=== PATIENT | male | born 1945 | race Caucasian/White ===

== ENCOUNTER 2017-05-14 08:15 | Emergency (ER) | payer MEDICARE, BC ==
[2017-05-14 09:22] LABS: BASOPHILS 0.2 % (0-2); EOSINOPHILS 1.6 % (0-7); HEMATOCRIT 42.2 % (42.0-54.0); HEMOGLOBIN 13.9 g/dL (13.5-17.5); IMMATURE GRANULOCYTES 0.2 % (0-5); LYMPHOCYTES 21.2 % (15-50); MCH 31.5 pg (26.0-34.0); MCHC 32.9 g/dL (31.0-37.0); MCV 95.7 fL (80.0-100.0); MEAN PLATELET VOLUME 9.2 fL (7.4-10.4); MONOCYTES 11.3 % (2-11); NEUTROPHILS 65.5 % (40-80); PLATELET COUNT 161 10x3/uL (130-400); RBC 4.41 10x6/uL (4.20-6.10); RDW 14.7 % (11.5-14.5); WBC 5.5 10x3/uL (4.8-10.8)
[2017-05-14 09:40] LABS: ALBUMIN 3.6 g/dL (3.4-5.0); ALKALINE PHOSPHATASE 87 U/L (46-116); ALT (SGPT) 34 U/L (10-68); BILIRUBIN - TOTAL 0.47 mg/dL (0.2-1.3); CALC OSMOLALITY 281 mosm/kg (275-300); CALCIUM 8.8 mg/dL (8.5-10.1); CARBON DIOXIDE 23.4 mmol/L (21.0-32.0); CHLORIDE - SERUM 109 mmol/L (98-107); GLUCOSE 97 mg/dL (74-106); POTASSIUM - SERUM 3.7 mmol/L (3.5-5.1); PROTEIN - SERUM 6.9 g/dL (6.4-8.2); SODIUM 141 mmol/L (136-145); UREA NITROGEN 14 mg/dL (7-18); eGFR NON AFRICAN AMERICAN 78 mL/min (90-120)
[2017-06-10 15:45] VITALS: BMI 28.2
== END 2017-05-14 10:40 | disposition home or self-care (01) ==
LOC: D.ER 08:15
PROVIDERS: Family Medicine
DX: L03.116 Cellulitis of left lower limb (principal); I80.3 Phlebitis and thrombophlebitis of lower extremities, unspecified

== ENCOUNTER 2017-05-31 10:27 | Emergency (ER) | payer MEDICARE, BC ==
[2017-05-31 11:16] LABS: BASOPHILS 0.4 % (0-2); EOSINOPHILS 1.4 % (0-7); HEMATOCRIT 41.2 % (42.0-54.0); HEMOGLOBIN 13.4 g/dL (13.5-17.5); IMMATURE GRANULOCYTES 0.4 % (0-5); MCH 31.1 pg (26.0-34.0); MCHC 32.5 g/dL (31.0-37.0); MCV 95.6 fL (80.0-100.0); MEAN PLATELET VOLUME 9.8 fL (7.4-10.4); MONOCYTES 11.5 % (2-11); NEUTROPHILS 66.3 % (40-80); PLATELET COUNT 173 10x3/uL (130-400); RBC 4.31 10x6/uL (4.20-6.10); RDW 13.9 % (11.5-14.5); WBC 5.6 10x3/uL (4.8-10.8)
[2017-05-31 11:28] LABS: ALBUMIN 3.7 g/dL (3.4-5.0); ALKALINE PHOSPHATASE 82 U/L (46-116); ALT (SGPT) 21 U/L (10-68); BILIRUBIN - TOTAL 0.53 mg/dL (0.2-1.3); CALC OSMOLALITY 281 mosm/kg (275-300); CALCIUM 8.6 mg/dL (8.5-10.1); CARBON DIOXIDE 23.5 mmol/L (21.0-32.0); CHLORIDE - SERUM 108 mmol/L (98-107); GLUCOSE 91 mg/dL (74-106); POTASSIUM - SERUM 4.2 mmol/L (3.5-5.1); PROTEIN - SERUM 6.7 g/dL (6.4-8.2); SODIUM 139 mmol/L (136-145); UREA NITROGEN 23 mg/dL (7-18); eGFR NON AFRICAN AMERICAN 78 mL/min (90-120)
[2017-05-31 11:35] LABS: PRO BNP 618 pg/mL (0-125)
[2017-06-10 15:45] VITALS: BMI 28.2
== END 2017-05-31 14:44 | disposition home or self-care (01) ==
LOC: D.ER 10:27
PROVIDERS: Emergency Medicine
DX: L03.116 Cellulitis of left lower limb (principal); I87.8 Other specified disorders of veins

== ENCOUNTER 2017-06-07 11:18 | Emergency (ER) | payer MEDICARE, BC ==
[2017-06-10 15:45] VITALS: BMI 28.2
== END 2017-06-07 12:34 | disposition home or self-care (01) ==
LOC: D.ER 11:18
DX: L03.116 Cellulitis of left lower limb (principal); M79.662 Pain in left lower leg

== ENCOUNTER 2017-06-10 10:38 | Inpatient (IN) | payer MEDICARE, BC ==
[~2017-06-10] VITALS: Ht 170.2 cm; Wt 81.8 kg
[2017-06-10 12:38] LABS: BASOPHILS 0.5 % (0-2); EOSINOPHILS 2.4 % (0-7); HEMATOCRIT 40.9 % (42.0-54.0); HEMOGLOBIN 13.4 g/dL (13.5-17.5); IMMATURE GRANULOCYTES 0.2 % (0-5); LYMPHOCYTES 21.9 % (15-50); MCH 31.2 pg (26.0-34.0); MCHC 32.8 g/dL (31.0-37.0); MCV 95.3 fL (80.0-100.0); MEAN PLATELET VOLUME 9.6 fL (7.4-10.4); PLATELET COUNT 157 10x3/uL (130-400); RBC 4.29 10x6/uL (4.20-6.10); RDW 13.5 % (11.5-14.5); WBC 6.2 10x3/uL (4.8-10.8)
--- NOTE | 2017-06-10 15:24 | NUR ---
PT ADMITTED TO FLOOR WITH ER STAFF VIA WHEELCHAIR.
[2017-06-10 15:45] VITALS: Ht 170.2 cm; Wt 81.8 kg
[2017-06-10 16:25] LABS: ANION GAP 12.5 mmol/L (8-16); BILIRUBIN - TOTAL 0.36 mg/dL (0.2-1.3); CALCIUM 9.2 mg/dL (8.5-10.1); CARBON DIOXIDE 25.7 mmol/L (21.0-32.0); CREATININE - SERUM 1.8 mg/dL (0.6-1.3); POTASSIUM - SERUM 5.2 mmol/L (3.5-5.1)
[2017-06-10 16:43] LABS: THYROID STIMULATING HORMONE 0.77 uIU/mL (0.36-3.74)
[2017-06-10 17:05] VITALS: BP 136/65
--- NOTE | 2017-06-10 20:10 | NUR ---
SISTER TALKS TO PT AT BEDSIDE.
[2017-06-10 21:03] VITALS: BP 118/65
--- NOTE | 2017-06-10 22:45 | NUR ---
PUT ON TELEMETRY FOR PT.
[2017-06-11 00:37] VITALS: BP 120/65
--- NOTE | 2017-06-11 03:57 | NUR ---
IN BED, CALL LIGHT IN REACH.
[2017-06-11] MEDS ORDERED: FUROSEMIDE20 MG PO (04:18)
[2017-06-11] MEDS ORDERED: LIPITOR20 MG PO (04:23)
[2017-06-11] MEDS ORDERED: ELOCON45 GM TOPICAL (04:24)
[2017-06-11] MEDS ORDERED: COREG6.25 MG PO (04:26)
[2017-06-11] MEDS ORDERED: PROPRANOLOL HCL80 MG PO (04:30)
[2017-06-11] MEDS ORDERED: NORCO 7.5/325 T1 TA1 PO (04:32)
[2017-06-11] MEDS ORDERED: TYLENOL W/CODEI1 TAB PO (04:34)
[2017-06-11] MEDS ORDERED: ADOXA100 MG PO (04:35)
[2017-06-11] MEDS ORDERED: KENALOG 0.1 % 115 GM (04:35)
[2017-06-11] MEDS ORDERED: TOPAMAX25 MG PO (04:37)
[2017-06-11] MEDS ORDERED: KEFLEX500 MG PO (04:38)
[2017-06-11] MEDS ORDERED: VIBRAMYCIN 100100 MG PO (04:39)
[2017-06-11] MEDS ORDERED: BACTRIM DS TABL1 TAB PO (04:40)
[2017-06-11] MEDS ORDERED: REQUIP0.5 MG PO (04:41)
[2017-06-11] MEDS ORDERED: HYDROCO/APAP TAB 5-3 (04:42)
[2017-06-11 05:00] VITALS: BP 125/59
[2017-06-11 05:45] LABS: BASOPHILS 0.4 % (0-2); HEMATOCRIT 41.1 % (42.0-54.0); HEMOGLOBIN 13.2 g/dL (13.5-17.5); IMMATURE GRANULOCYTES 0.2 % (0-5); LYMPHOCYTES 24.5 % (15-50); MCH 30.8 pg (26.0-34.0); MCHC 32.1 g/dL (31.0-37.0); MCV 95.8 fL (80.0-100.0); MEAN PLATELET VOLUME 10.2 fL (7.4-10.4); MONOCYTES 10.4 % (2-11); NEUTROPHILS 61.5 % (40-80); RBC 4.29 10x6/uL (4.20-6.10); RDW 13.6 % (11.5-14.5); WBC 5.7 10x3/uL (4.8-10.8)
[2017-06-11 05:57] LABS: PLATELET COUNT 204 10x3/uL (130-400)
[2017-06-11 06:29] LABS: ALBUMIN 3.5 g/dL (3.4-5.0); ANION GAP 13.9 mmol/L (8-16); BILIRUBIN - TOTAL 0.3 mg/dL (0.2-1.3); CALCIUM 9.1 mg/dL (8.5-10.1); CARBON DIOXIDE 22.9 mmol/L (21.0-32.0); CREATININE - SERUM 1.6 mg/dL (0.6-1.3); POTASSIUM - SERUM 4.8 mmol/L (3.5-5.1); PROTEIN - SERUM 6.7 g/dL (6.4-8.2)
--- NOTE | 2017-06-11 08:08 | NUR ---
REQUESTED AND GIVEN 4MG MORPHINE SLOW IVP FOR C/O LEFT LEG PAIN LEVEL 8. WILL MONITOR.
[2017-06-11 08:22] VITALS: BP 134/68
--- NOTE | 2017-06-11 09:02 | NUR ---
AWAKE AND ALERT. ORIENTED X3. NO C/O AT THIS TIME. REPORTS GOOD RELIEF WITH USE OF MORPHINE. LUNGS ARE CLEAR BILATERALLY,OCCASSIONAL DRY COUGH NOTED. SKIN IS INTACT WITHOUT REDNESS EXCEPT BILATERAL LOWER EXTREMETIES WHICH ARE REDDENED AND SWOLLEN, NO WEEPING NOTED. SL TO RIGHT HAND PATENT WITHOUT REDNESS AT [NSERTION SITE. ATE ALL OF BREAKFAST. DENIES NEEDS.
--- NOTE | 2017-06-11 10:56 | NUR ---
ATE ALMOST ALL OF BREAKFAST. UP TO BR PER SELF. DENIES NEEDS.
[2017-06-11 11:53] VITALS: BP 123/71
--- NOTE | 2017-06-11 13:26 | NUR ---
Patient Name: GIA GUSMAN Admission Status: ER Accout number: [id number] Admission Date: 06-10-2017 : 1945 Admission Diagnosis: Attending: GERTRUDE AGUILAR Current LOS: 1 Anticipated DC Date: 06-13-2017 Planned Disposition: Home Primary Insurance: MEDICARE A & B Discharge Planning Comments: CM MET WITH PATIENT REGARDING D/C NEEDS AND PLANS. PATIENT STATED HE HAS BEEN STAYING AT THE [facility] WITH HIS (HEATHER). PATIENT STATED HE HAS A HOME AND HE AND HIS ARE GOING BACK WITH THE HELP OF HIRED CAREGIVERS. HE SAID THIS WOULD PROBABLY HAPPEN WITHIN A MONTH. PATIENT HAS A WHEELCHAIR AND BUILT IN SHOWER SEAT AT HIS HOME. PATIENTS PCP IS DR. MORTENSEN IN [place] AND PHARMACY IS [facility] IN [place]. PATIENT REFUSED HOME HEALTH AND DENIED ANY NEEDS FOR DISCHARGE AT THIS TIME. CM PROVIDED INFORMATION MATERIAL FOR IN HOME CARE. CM WILL CONTINUE TO FOLLOW PATIENT WITH D/C NEEDS AND PLANS. PCP DR. MORTENSEN ([place]) [facility] () [phone] Alberene Stone Setter: Patricia Fraire Is the patient Alert and Oriented? Yes 0 * How many steps to enter\exit or inside your home? 0 0 * PCP DR. MORTENSEN ([place]) 0 * Pharmacy [facility] 0 * Preadmission Environment Assisted Living 0 * Facility Name [facility] 0 * ADLs Independent 0 * Equipment Shower Chair Wheelchair 0 * List name and contact numbers for known caregivers / representatives who currently or will assist patient after discharge: HEATHER ([phone]) 0 * Community resources currently utilized Assisted Living 0 * Please name any agencies selected above. [facility] 0 * Additional services required to return to the preadmission environment? Yes 0 * Can the patient safely return to the preadmission environment? Yes 0 * Has this patient been hospitalized within the prior 30 days at any hospital? No 0 Grand Total: 0
[2017-06-11 16:19] VITALS: BP 115/63
[2017-06-11 20:00] VITALS: BP 147/82
[2017-06-12] VITALS: BP 149/88
[2017-06-12 04:00] VITALS: BP 139/75
[2017-06-12 05:38] LABS: BASOPHILS 0.5 % (0-2); EOSINOPHILS 3.8 % (0-7); HEMATOCRIT 43.6 % (42.0-54.0); IMMATURE GRANULOCYTES 0.2 % (0-5); LYMPHOCYTES 25.5 % (15-50); MCH 30.9 pg (26.0-34.0); MCHC 32.1 g/dL (31.0-37.0); MCV 96.2 fL (80.0-100.0); MEAN PLATELET VOLUME 9.8 fL (7.4-10.4); MONOCYTES 9.7 % (2-11); NEUTROPHILS 60.3 % (40-80); PLATELET COUNT 192 10x3/uL (130-400); RBC 4.53 10x6/uL (4.20-6.10); RDW 13.2 % (11.5-14.5); WBC 5.6 10x3/uL (4.8-10.8)
[2017-06-12 05:55] LABS: ALBUMIN 3.6 g/dL (3.4-5.0); BILIRUBIN - TOTAL 0.42 mg/dL (0.2-1.3); CALCIUM 9.1 mg/dL (8.5-10.1); CREATININE - SERUM 1.4 mg/dL (0.6-1.3); PROTEIN - SERUM 6.9 g/dL (6.4-8.2)
[2017-06-12 08:18] VITALS: BP 119/60
[2017-06-12 11:40] VITALS: BP 135/66
[2017-06-12] MEDS ORDERED: KEFLEX500 MG PO (12:56)
[2017-06-12] MEDS ORDERED: FLORAJEN3 CAPS460 MG PO (12:56)
[2017-06-12] MEDS ORDERED: NORCO 7.5/325 T1 TA1 PO (12:57)
--- NOTE | 2017-06-12 13:56 | NUR ---
CM REASSESSMENT NOTE: PATIENT IS DISCHARGING TODAY. PATIENT WILL BE AT HIS WIFES HOME IN THE [facility] ROOM 206. PATIENT SIGNED THE [facility] FORM FOR [facility] AND REFERRAL SENT. [facility] ALSO SEES PATIENTS .
--- NOTE | 2017-06-12 15:15 | NUR ---
R HAND IV D/C'D AT THIS TIME, CATHETER INTACT, BLEED CONTROL, BANDAGE APPLIED. DISCHARGE INSTRUCTIONS GIVEN, VERBALIZED UNDERSTANDING AND SIGNED AT THIS TIME.
--- NOTE | 2017-06-12 15:16 | NUR ---
PT DISCHARGED FROM FACILITY VIA WHEELCHAIR, PERSONAL BELONGINGS WITH PT. NO QUESTIONS AT THIS TIME, NO SIGNS OF ACUTE DISTRESS.
== END 2017-06-12 15:18 | disposition home or self-care (01) | DRG 603 ==
LOC: D.ER 10:38 → D.MS 12:53
PROVIDERS: Emergency Medicine; ADMIT Family Medicine
DX: L03.116 Cellulitis of left lower limb (principal); L03.115 Cellulitis of right lower limb; I25.10 Atherosclerotic heart disease of native coronary artery without angina pectoris; E87.5 Hyperkalemia; Z86.73 Personal history of transient ischemic attack (TIA), and cerebral infarction without residual deficits; Z95.1 Presence of aortocoronary bypass graft

== ENCOUNTER 2017-09-19 18:06 | Emergency (ER) | payer MEDICARE, BC ==
[2017-06-10 15:45] VITALS: BMI 28.2
[~2017-09-19 18:06] MED LIST: ADOXA100 MG PO; BACTRIM DS TABL1 TAB PO; COREG6.25 MG PO; ELOCON45 GM TOPICAL; FLORAJEN3 CAPS460 MG PO; FUROSEMIDE20 MG PO; HYDROCO/APAP TAB 5-3; KEFLEX500 MG PO; KENALOG 0.1 % 115 GM; LIPITOR20 MG PO; NORCO 7.5/325 T1 TA1 PO; PROPRANOLOL HCL80 MG PO; REQUIP0.5 MG PO; TOPAMAX25 MG PO; TYLENOL W/CODEI1 TAB PO; VIBRAMYCIN 100100 MG PO
== END 2017-09-19 19:40 | disposition home or self-care (01) ==
LOC: D.ER 18:06
DX: L03.116 Cellulitis of left lower limb (principal)

== ENCOUNTER 2017-09-23 15:57 | Inpatient (IN) | payer MEDICARE, BC ==
[~2017-09-23] VITALS: Ht 170.2 cm; Wt 98.4 kg
[2017-09-23 17:41] LABS: BASOPHILS 0.6 % (0-2); EOSINOPHILS 3.8 % (0-7); HEMATOCRIT 39.6 % (42.0-54.0); IMMATURE GRANULOCYTES 0.2 % (0-5); LYMPHOCYTES 24.6 % (15-50); MCH 31.3 pg (26.0-34.0); MCHC 32.8 g/dL (31.0-37.0); MCV 95.4 fL (80.0-100.0); MEAN PLATELET VOLUME 9.7 fL (7.4-10.4); MONOCYTES 8.6 % (2-11); NEUTROPHILS 62.2 % (40-80); PLATELET COUNT 202 10x3/uL (130-400); RBC 4.15 10x6/uL (4.20-6.10); RDW 13.8 % (11.5-14.5); WBC 5.3 10x3/uL (4.8-10.8)
[2017-09-23 17:57] LABS: ALBUMIN 3.7 g/dL (3.4-5.0); ANION GAP 14.7 mmol/L (8-16); BILIRUBIN - TOTAL 0.36 mg/dL (0.2-1.3); CALCIUM 8.6 mg/dL (8.5-10.1); CARBON DIOXIDE 23.3 mmol/L (21.0-32.0); CREATININE - SERUM 1.9 mg/dL (0.6-1.3); PROTEIN - SERUM 7.4 g/dL (6.4-8.2)
[2017-09-24 03:28] VITALS: BP 118/64; BMI 29.8
[2017-09-24 04:00] VITALS: BP 139/67
[2017-09-24 08:34] VITALS: BP 147/83
[2017-09-24] MEDS ORDERED: FUROSEMIDE20 MG PO (08:38)
[2017-09-24] MEDS ORDERED: ULTRAM50 MG PO (08:38)
[2017-09-24] MEDS ORDERED: LOSARTAN POTASS25 MG PO (08:39)
[2017-09-24] MEDS ORDERED: K-TAB10 MEQ PO (08:39)
[2017-09-24 11:52] VITALS: BP 119/58
[2017-09-24 15:56] LABS: % SATURATION 34 % (15-55); IRON 104 ug/dl (35-150); TOTAL IRON BIND CAPACITY 305 ug/dl (260-445); UNSAT IRON BIND CAPACITY 201 ug/dl (150-375)
[2017-09-24 16:17] VITALS: BP 95/53
[2017-09-24 20:00] VITALS: BP 107/50
[2017-09-25] VITALS: BP 129/66
[2017-09-25 03:58] LABS: BASOPHILS 0.7 % (0-2); HEMATOCRIT 39.9 % (42.0-54.0); HEMOGLOBIN 12.9 g/dL (13.5-17.5); IMMATURE GRANULOCYTES 0.2 % (0-5); LYMPHOCYTES 28.2 % (15-50); MCHC 32.3 g/dL (31.0-37.0); MCV 95.9 fL (80.0-100.0); MEAN PLATELET VOLUME 9.8 fL (7.4-10.4); MONOCYTES 12.8 % (2-11); NEUTROPHILS 54.1 % (40-80); PLATELET COUNT 187 10x3/uL (130-400); RBC 4.16 10x6/uL (4.20-6.10); RDW 13.8 % (11.5-14.5); WBC 5.7 10x3/uL (4.8-10.8)
[2017-09-25 04:00] VITALS: BP 132/64
[2017-09-25 04:22] LABS: ANION GAP 15.4 mmol/L (8-16); CALCIUM 8.9 mg/dL (8.5-10.1); CARBON DIOXIDE 23.4 mmol/L (21.0-32.0); CREATININE - SERUM 1.8 mg/dL (0.6-1.3); POTASSIUM - SERUM 4.8 mmol/L (3.5-5.1)
[2017-09-25 07:53] VITALS: BP 115/57
[2017-09-25 08:18] LABS: FOLATE (FOLIC ACID) - SERUM 8.9 ng/mL (>3.0)
[2017-09-25 11:00] VITALS: BP 109/60
[2017-09-25 14:56] VITALS: Ht 170.2 cm; Wt 98.4 kg
[2017-09-25 16:18] VITALS: BP 100/55
[2017-09-26 01:47] VITALS: BP 105/55
[2017-09-26 05:25] LABS: BASOPHILS 0.4 % (0-2); EOSINOPHILS 3.5 % (0-7); HEMATOCRIT 39.6 % (42.0-54.0); HEMOGLOBIN 12.8 g/dL (13.5-17.5); IMMATURE GRANULOCYTES 0.4 % (0-5); LYMPHOCYTES 23.8 % (15-50); MCH 30.9 pg (26.0-34.0); MCHC 32.3 g/dL (31.0-37.0); MCV 95.7 fL (80.0-100.0); NEUTROPHILS 58.9 % (40-80); PLATELET COUNT 213 10x3/uL (130-400); RBC 4.14 10x6/uL (4.20-6.10); RDW 13.4 % (11.5-14.5); WBC 6.8 10x3/uL (4.8-10.8)
[2017-09-26 05:44] LABS: ANION GAP 13.4 mmol/L (8-16); CALCIUM 8.2 mg/dL (8.5-10.1); CREATININE - SERUM 1.6 mg/dL (0.6-1.3); POTASSIUM - SERUM 4.4 mmol/L (3.5-5.1)
[2017-09-26 07:34] VITALS: BP 113/64
[2017-09-26 11:00] VITALS: BP 119/68
[2017-09-26 15:13] VITALS: BP 114/58
[2017-09-26 20:00] VITALS: BP 104/54
[2017-09-27] VITALS: BP 120/60
[2017-09-27 04:00] VITALS: BP 122/70
[2017-09-27 05:27] LABS: BASOPHILS 0.5 % (0-2); EOSINOPHILS 3.6 % (0-7); HEMATOCRIT 41.1 % (42.0-54.0); HEMOGLOBIN 13.3 g/dL (13.5-17.5); IMMATURE GRANULOCYTES 0.3 % (0-5); LYMPHOCYTES 23.3 % (15-50); MCH 31.1 pg (26.0-34.0); MCHC 32.4 g/dL (31.0-37.0); MCV 96.3 fL (80.0-100.0); MEAN PLATELET VOLUME 10.2 fL (7.4-10.4); MONOCYTES 13.4 % (2-11); NEUTROPHILS 58.9 % (40-80); PLATELET COUNT 196 10x3/uL (130-400); RBC 4.27 10x6/uL (4.20-6.10); RDW 13.6 % (11.5-14.5); WBC 5.8 10x3/uL (4.8-10.8)
[2017-09-27 05:51] LABS: ANION GAP 14.8 mmol/L (8-16); CALCIUM 8.4 mg/dL (8.5-10.1); CARBON DIOXIDE 23.5 mmol/L (21.0-32.0); CREATININE - SERUM 1.3 mg/dL (0.6-1.3); POTASSIUM - SERUM 4.3 mmol/L (3.5-5.1)
[2017-09-27 07:35] VITALS: BP 113/72
[2017-09-27 16:17] VITALS: BP 132/72
[2017-09-27 20:00] VITALS: BP 127/59
[2017-09-28 04:00] VITALS: BP 116/63
[2017-09-28 05:02] LABS: BASOPHILS 0.6 % (0-2); EOSINOPHILS 2.7 % (0-7); HEMATOCRIT 39.5 % (42.0-54.0); HEMOGLOBIN 12.8 g/dL (13.5-17.5); IMMATURE GRANULOCYTES 0.5 % (0-5); LYMPHOCYTES 21.5 % (15-50); MCH 31.4 pg (26.0-34.0); MCHC 32.4 g/dL (31.0-37.0); MCV 96.8 fL (80.0-100.0); MEAN PLATELET VOLUME 9.7 fL (7.4-10.4); NEUTROPHILS 64.7 % (40-80); PLATELET COUNT 191 10x3/uL (130-400); RBC 4.08 10x6/uL (4.20-6.10); RDW 13.7 % (11.5-14.5); WBC 6.6 10x3/uL (4.8-10.8)
[2017-09-28 05:27] LABS: ANION GAP 14.1 mmol/L (8-16); CALCIUM 8.4 mg/dL (8.5-10.1); CARBON DIOXIDE 23.9 mmol/L (21.0-32.0); CREATININE - SERUM 1.4 mg/dL (0.6-1.3)
[2017-09-28 08:35] VITALS: BP 131/66
[2017-09-28 11:40] VITALS: BP 124/66
[2017-09-28 15:34] VITALS: BP 122/59
[2017-09-28 19:00] VITALS: BP 125/63
[2017-09-29 04:00] VITALS: BP 113/63
[2017-09-29 04:44] LABS: BASOPHILS 0.5 % (0-2); EOSINOPHILS 2.4 % (0-7); HEMATOCRIT 40.8 % (42.0-54.0); HEMOGLOBIN 13.3 g/dL (13.5-17.5); IMMATURE GRANULOCYTES 0.8 % (0-5); LYMPHOCYTES 23.3 % (15-50); MCH 31.2 pg (26.0-34.0); MCHC 32.6 g/dL (31.0-37.0); MCV 95.8 fL (80.0-100.0); MEAN PLATELET VOLUME 10.1 fL (7.4-10.4); PLATELET COUNT 212 10x3/uL (130-400); RBC 4.26 10x6/uL (4.20-6.10); RDW 13.9 % (11.5-14.5); WBC 6.6 10x3/uL (4.8-10.8)
[2017-09-29 05:02] LABS: ANION GAP 13.1 mmol/L (8-16); CALCIUM 8.3 mg/dL (8.5-10.1); CREATININE - SERUM 1.4 mg/dL (0.6-1.3); POTASSIUM - SERUM 4.1 mmol/L (3.5-5.1)
[2017-09-29 08:27] VITALS: BP 131/80
[2017-09-29 11:46] VITALS: BP 115/60
[2017-09-29 15:34] VITALS: BP 111/52
[2017-09-29 20:00] VITALS: BP 119/61
[2017-09-30] VITALS: BP 136/61
[2017-09-30 04:00] VITALS: BP 101/63
[2017-09-30 04:53] LABS: BASOPHILS 0.5 % (0-2); EOSINOPHILS 2.2 % (0-7); HEMATOCRIT 41.2 % (42.0-54.0); HEMOGLOBIN 13.6 g/dL (13.5-17.5); LYMPHOCYTES 19.6 % (15-50); MCH 31.9 pg (26.0-34.0); MCV 96.7 fL (80.0-100.0); MONOCYTES 11.6 % (2-11); NEUTROPHILS 65.1 % (40-80); PLATELET COUNT 224 10x3/uL (130-400); RBC 4.26 10x6/uL (4.20-6.10); RDW 13.8 % (11.5-14.5); WBC 7.3 10x3/uL (4.8-10.8)
[2017-09-30 05:13] LABS: ALBUMIN 3.6 g/dL (3.4-5.0); ANION GAP 14.7 mmol/L (8-16); BILIRUBIN - TOTAL 0.4 mg/dL (0.2-1.3); CALCIUM 8.6 mg/dL (8.5-10.1); CARBON DIOXIDE 26.5 mmol/L (21.0-32.0); CREATININE - SERUM 1.5 mg/dL (0.6-1.3); POTASSIUM - SERUM 4.2 mmol/L (3.5-5.1); PROTEIN - SERUM 7.5 g/dL (6.4-8.2)
[2017-09-30 07:49] VITALS: BP 115/56
[2017-09-30 11:15] VITALS: BP 114/61
[2017-09-30 15:14] VITALS: BP 128/67
[2017-09-30 18:09] LABS: AEROBE ID Final report (())
[2017-09-30 20:00] VITALS: BP 148/73
[2017-10-01] VITALS: BP 116/64
[2017-10-01 04:00] VITALS: BP 116/72
[2017-10-01 06:25] LABS: BASOPHILS 0.5 % (0-2); EOSINOPHILS 1.5 % (0-7); HEMATOCRIT 43.7 % (42.0-54.0); HEMOGLOBIN 14.2 g/dL (13.5-17.5); LYMPHOCYTES 14.5 % (15-50); MCH 31.3 pg (26.0-34.0); MCHC 32.5 g/dL (31.0-37.0); MCV 96.5 fL (80.0-100.0); MEAN PLATELET VOLUME 9.9 fL (7.4-10.4); MONOCYTES 11.3 % (2-11); NEUTROPHILS 71.2 % (40-80); PLATELET COUNT 229 10x3/uL (130-400); RBC 4.53 10x6/uL (4.20-6.10); RDW 13.7 % (11.5-14.5); WBC 8.1 10x3/uL (4.8-10.8)
[2017-10-01 06:41] LABS: ALBUMIN 3.8 g/dL (3.4-5.0); ANION GAP 11.2 mmol/L (8-16); BILIRUBIN - TOTAL 0.4 mg/dL (0.2-1.3); CALCIUM 9.1 mg/dL (8.5-10.1); CARBON DIOXIDE 28.1 mmol/L (21.0-32.0); CREATININE - SERUM 1.4 mg/dL (0.6-1.3); POTASSIUM - SERUM 4.3 mmol/L (3.5-5.1); PROTEIN - SERUM 8.2 g/dL (6.4-8.2)
[2017-10-01 07:38] VITALS: BP 122/74
[2017-10-01 11:14] VITALS: BP 147/74
[2017-10-01 15:23] VITALS: BP 122/62
[2017-10-01 20:00] VITALS: BP 113/56
[2017-10-02 04:00] VITALS: BP 123/60
[2017-10-02 05:40] LABS: BASOPHILS 0.5 % (0-2); EOSINOPHILS 3.4 % (0-7); HEMOGLOBIN 12.7 g/dL (13.5-17.5); IMMATURE GRANULOCYTES 0.7 % (0-5); LYMPHOCYTES 23.1 % (15-50); MCHC 32.6 g/dL (31.0-37.0); MCV 95.1 fL (80.0-100.0); MEAN PLATELET VOLUME 10.5 fL (7.4-10.4); NEUTROPHILS 61.3 % (40-80); PLATELET COUNT 201 10x3/uL (130-400); RDW 13.9 % (11.5-14.5)
[2017-10-02 05:47] LABS: WBC 5.9 10x3/uL (4.8-10.8)
[2017-10-02 05:55] LABS: ALBUMIN 3.4 g/dL (3.4-5.0); ANION GAP 13.1 mmol/L (8-16); BILIRUBIN - TOTAL 0.36 mg/dL (0.2-1.3); CALCIUM 8.7 mg/dL (8.5-10.1); CARBON DIOXIDE 25.8 mmol/L (21.0-32.0); CREATININE - SERUM 1.3 mg/dL (0.6-1.3); POTASSIUM - SERUM 3.9 mmol/L (3.5-5.1); PROTEIN - SERUM 7.3 g/dL (6.4-8.2)
[2017-10-02 09:26] VITALS: BP 103/50
[2017-10-02 12:03] VITALS: BP 124/60
[2017-10-02 15:57] VITALS: BP 110/56
[2017-10-02 20:00] VITALS: BP 118/58
[2017-10-03] VITALS: BP 151/72
[2017-10-03 04:00] VITALS: BP 100/55
[2017-10-03 05:24] LABS: BASOPHILS 0.3 % (0-2); EOSINOPHILS 3.1 % (0-7); HEMATOCRIT 41.3 % (42.0-54.0); HEMOGLOBIN 13.3 g/dL (13.5-17.5); IMMATURE GRANULOCYTES 0.6 % (0-5); LYMPHOCYTES 23.9 % (15-50); MCH 31.1 pg (26.0-34.0); MCHC 32.2 g/dL (31.0-37.0); MCV 96.7 fL (80.0-100.0); MEAN PLATELET VOLUME 9.9 fL (7.4-10.4); MONOCYTES 17.9 % (2-11); NEUTROPHILS 54.2 % (40-80); PLATELET COUNT 177 10x3/uL (130-400); RBC 4.27 10x6/uL (4.20-6.10); RDW 13.9 % (11.5-14.5); WBC 6.5 10x3/uL (4.8-10.8)
[2017-10-03 05:46] LABS: ALBUMIN 3.6 g/dL (3.4-5.0); ANION GAP 16.3 mmol/L (8-16); BILIRUBIN - TOTAL 0.41 mg/dL (0.2-1.3); CALCIUM 8.9 mg/dL (8.5-10.1); CARBON DIOXIDE 24.3 mmol/L (21.0-32.0); CREATININE - SERUM 1.2 mg/dL (0.6-1.3); PROTEIN - SERUM 7.3 g/dL (6.4-8.2)
[2017-10-03 05:47] LABS: POTASSIUM - SERUM 4.6 mmol/L (3.5-5.1)
[2017-10-03 08:07] VITALS: BP 128/70
[2017-10-03 12:13] VITALS: BP 119/73
[2017-10-03] MEDS ORDERED: NEURONTIN 300300 MG PO (15:06)
[2017-10-03 17:23] VITALS: BP 119/65
[2017-10-03 21:24] VITALS: BP 97/50
[2017-10-04 02:14] VITALS: BP 123/69
[2017-10-04 05:36] VITALS: BP 114/62
[2017-10-04 05:45] LABS: BASOPHILS 0.5 % (0-2); HEMATOCRIT 38.7 % (42.0-54.0); HEMOGLOBIN 12.5 g/dL (13.5-17.5); IMMATURE GRANULOCYTES 0.5 % (0-5); MCH 30.7 pg (26.0-34.0); MCHC 32.3 g/dL (31.0-37.0); MCV 95.1 fL (80.0-100.0); MEAN PLATELET VOLUME 10.2 fL (7.4-10.4); MONOCYTES 14.3 % (2-11); NEUTROPHILS 58.7 % (40-80); PLATELET COUNT 205 10x3/uL (130-400); RBC 4.07 10x6/uL (4.20-6.10); RDW 13.8 % (11.5-14.5); WBC 6.1 10x3/uL (4.8-10.8)
[2017-10-04 05:58] LABS: ALBUMIN 3.3 g/dL (3.4-5.0); ANION GAP 16.7 mmol/L (8-16); BILIRUBIN - TOTAL 0.45 mg/dL (0.2-1.3); CALCIUM 8.7 mg/dL (8.5-10.1); CARBON DIOXIDE 24.3 mmol/L (21.0-32.0); CREATININE - SERUM 1.4 mg/dL (0.6-1.3); PROTEIN - SERUM 7.2 g/dL (6.4-8.2)
[2017-10-04 07:57] VITALS: BP 123/66
[2017-10-04 11:23] VITALS: BP 120/58
== END 2017-10-04 13:06 | disposition home or self-care (01) | DRG 603 ==
LOC: D.ER 15:57 → D.M2 18:40
PROVIDERS: Family Medicine; Internal Medicine Nephrology; Physician Assistant
DX: L03.116 Cellulitis of left lower limb (principal); N17.9 Acute kidney failure, unspecified; I50.22 Chronic systolic (congestive) heart failure; K21.9 Gastro-esophageal reflux disease without esophagitis; D64.9 Anemia, unspecified; I25.10 Atherosclerotic heart disease of native coronary artery without angina pectoris; I11.0 Hypertensive heart disease with heart failure; Z86.73 Personal history of transient ischemic attack (TIA), and cerebral infarction without residual deficits; Z95.1 Presence of aortocoronary bypass graft; I89.0 Lymphedema, not elsewhere classified

== ENCOUNTER 2018-02-24 23:53 | Emergency (ER) | payer MEDICARE, BC ==
[~2018-02-24] VITALS: Ht 170.2 cm; Wt 82.7 kg
[~2018-02-24 23:53] MED LIST changes: +K-TAB10 MEQ PO; +LOSARTAN POTASS25 MG PO; +NEURONTIN 300300 MG PO; +ULTRAM50 MG PO
[2018-02-25 00:03] VITALS: Ht 170.2 cm; Wt 82.7 kg
[2018-02-25] MEDS ORDERED: VIBRAMYCIN 100100 MG PO (00:37)
[2018-02-25] MEDS ORDERED: VOLTAREN75 MG PO (00:37)
[2018-02-25 01:12] VITALS: BP 125/65
== END 2018-02-25 01:12 | disposition home or self-care (01) ==
LOC: D.ER 23:53
DX: M62.81 Muscle weakness (generalized) (principal); L03.116 Cellulitis of left lower limb; M79.605 Pain in left leg; Z86.73 Personal history of transient ischemic attack (TIA), and cerebral infarction without residual deficits; Z95.1 Presence of aortocoronary bypass graft

== ENCOUNTER 2018-12-16 03:33 | Emergency (ER) | payer MEDICARE, BC ==
[~2018-12-16] VITALS: Ht 170.2 cm; Wt 86.4 kg
[~2018-12-16 03:33] MED LIST changes: +VOLTAREN75 MG PO
[2018-12-16 03:36] VITALS: Ht 170.2 cm; Wt 86.4 kg
[2018-12-16] MEDS ORDERED: HYDROCODON-ACE1 EAC2 PO (04:00)
[2018-12-16] MEDS ORDERED: DOXYCYCLINE HY100 M2 PO (04:00)
[2018-12-16 04:22] LABS: BASOPHILS 0.3 % (0-2); EOSINOPHILS 1.5 % (0-7); HEMATOCRIT 41.6 % (42.0-54.0); HEMOGLOBIN 14.2 g/dL (13.5-17.5); IMMATURE GRANULOCYTES 0.1 % (0-5); LYMPHOCYTES 20.7 % (15-50); MCHC 34.1 g/dL (31.0-37.0); MCV 90.8 fL (80.0-100.0); MEAN PLATELET VOLUME 9.5 fL (7.4-10.4); MONOCYTES 11.2 % (2-11); NEUTROPHILS 66.2 % (40-80); PLATELET COUNT 190 10x3/uL (130-400); RBC 4.58 10x6/uL (4.20-6.10); WBC 7.3 10x3/uL (4.8-10.8)
[2018-12-16 04:36] LABS: ALBUMIN 3.5 g/dL (3.4-5.0); ANION GAP 14.3 mmol/L (8-16); BILIRUBIN - TOTAL 0.33 mg/dL (0.2-1.3); CALCIUM 9.1 mg/dL (8.5-10.1); CARBON DIOXIDE 23.5 mmol/L (21.0-32.0); CREATININE - SERUM 1.1 mg/dL (0.6-1.3); POTASSIUM - SERUM 3.8 mmol/L (3.5-5.1); PROTEIN - SERUM 7.1 g/dL (6.4-8.2)
[2018-12-16 04:57] VITALS: BP 146/87
== END 2018-12-16 05:00 | disposition home or self-care (01) ==
LOC: D.ER 03:33
PROVIDERS: Emergency Medicine
DX: L03.116 Cellulitis of left lower limb (principal)

== ENCOUNTER 2020-01-15 00:41 | Observation (INO) | payer MEDICARE, BC ==
[~2020-01-15] VITALS: Ht 170.2 cm; Wt 84.6 kg
[~2020-01-15 00:41] MED LIST changes: +AZITHROMYCIN500 MG PO; +BAYER CHEWABLE81 MG PO; +DOXYCYCLINE HY100 M2 PO; +HYDROCODON-ACE1 EAC2 PO; +TAMIFLU75 MG PO
[2020-01-15] MEDS ORDERED: XARELTO10 MG PO (00:47)
[2020-01-15 00:53] LABS: BASOPHILS 0.2 % (0-2); EOSINOPHILS 1.1 % (0-7); HEMATOCRIT 37.9 % (42.0-54.0); HEMOGLOBIN 12.2 g/dL (13.5-17.5); IMMATURE GRANULOCYTES 0.3 % (0-5); LYMPHOCYTES 12.8 % (15-50); MCH 29.1 pg (26.0-34.0); MCHC 32.2 g/dL (31.0-37.0); MCV 90.5 fL (80.0-100.0); MEAN PLATELET VOLUME 9.3 fL (7.4-10.4); MONOCYTES 10.7 % (2-11); NEUTROPHILS 74.9 % (40-80); PLATELET COUNT 152 10x3/uL (130-400); RBC 4.19 10x6/uL (4.20-6.10); RDW 14.2 % (11.5-14.5); WBC 6.7 10x3/uL (4.8-10.8)
[2020-01-15 01:11] LABS: CALC OSMOLALITY 274 mosm/kg (275-300); CALCIUM 8.7 mg/dL (8.5-10.1); CARBON DIOXIDE 28.8 mmol/L (21.0-32.0); CHLORIDE - SERUM 102 mmol/L (98-107); GLUCOSE 136 mg/dL (74-106); POTASSIUM - SERUM 4.1 mmol/L (3.5-5.1); SODIUM 136 mmol/L (136-145); UREA NITROGEN 16 mg/dL (7-18); eGFR NON AFRICAN AMERICAN 77 mL/min (90-120)
[2020-01-15 01:26] LABS: ALBUMIN 3.2 g/dL (3.4-5.0); ALKALINE PHOSPHATASE 74 U/L (30-120); ALT (SGPT) 14 U/L (10-68); BILIRUBIN - TOTAL 0.68 mg/dL (0.2-1.3); CREATINE KINASE 95 UL (21-232); MAGNESIUM - SERUM 1.7 mg/dL (1.8-2.4); PRO BNP 678 pg/mL (0-450); PROTEIN - SERUM 6.7 g/dL (6.4-8.2); TROPONIN-I 0.028 ng/mL (0.000-0.060)
[2020-01-15 02:37] VITALS: BP 128/70
[2020-01-15] MEDS ORDERED: ZANAFLEX4 MG PO (03:10)
[2020-01-15 03:24] VITALS: BP 155/69; Ht 170.2 cm; Wt 84.6 kg
--- NOTE | 2020-01-15 03:34 | NUR ---
RECIEVED REPORT FROM JESSICA MCCRACKEN IN ER AT 0240. ARRIVED TO FLOOR AT 0300 ON STRETCHER. UNABLE TO STAND. WAS ABLE TO SCOOT OVER TO BED. IV TO RT FA SL. DSGS TO LT ARM. ALSO, TO LT AND RT THIGH. HS DSG TO BACK OF LT LEG. STATES IT'S A VENOUS STASIS ULCER. DENIES ANY NEEDS AT THIS TIME. ASSESSMENT COMPLETED.
[2020-01-15 08:45] VITALS: BP 134/73
[2020-01-15 12:07] VITALS: BP 125/72
[2020-01-15 15:51] VITALS: BP 129/76
--- NOTE | 2020-01-15 16:06 | NUR ---
SPOKE WITH GERRY MULLIGAN, REGARDING PT'S "BLOOD THINNER". ACCORDING TO PHARMACY RECORDS RX FOR XARELTO 10 MG WAS ISSUED. PT REPORTS HE HAS NOT PICKED IT UP. PER ESE REC BEGIN THE XARELTO.
--- NOTE | 2020-01-15 19:27 | NUR ---
RECIEVED LAYING IN BED WITH HOB ELEVATED. ALERT AND ORIETNED X4. UP WITH ASSIST. LEFT ARM CONTRACTED. LEFT LEG WEAKNESS. 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 IV TO RT FA SL. DSG TO LT HAND AND ELBOW. CDI. DSG TO BILATERAL THIGHS D/T RECENT SURGERY. INCONT OF BLADDER AT TIME. DENIES ANY NEEDS AT THIS TIME.
[2020-01-15 20:30] VITALS: BP 134/62
[2020-01-16 04:41] VITALS: BP 124/61
[2020-01-16 05:52] LABS: BASOPHILS 0.1 % (0-2); EOSINOPHILS 2.3 % (0-7); HEMATOCRIT 38.6 % (42.0-54.0); HEMOGLOBIN 12.3 g/dL (13.5-17.5); IMMATURE GRANULOCYTES 0.4 % (0-5); LYMPHOCYTES 17.8 % (15-50); MCH 28.9 pg (26.0-34.0); MCHC 31.9 g/dL (31.0-37.0); MCV 90.8 fL (80.0-100.0); MEAN PLATELET VOLUME 9.5 fL (7.4-10.4); MONOCYTES 9.1 % (2-11); NEUTROPHILS 70.3 % (40-80); PLATELET COUNT 168 10x3/uL (130-400); RBC 4.25 10x6/uL (4.20-6.10); RDW 14.3 % (11.5-14.5); WBC 7.8 10x3/uL (4.8-10.8)
[2020-01-16 06:37] LABS: CALC OSMOLALITY 277 mosm/kg (275-300); CARBON DIOXIDE 28.4 mmol/L (21.0-32.0); CHLORIDE - SERUM 104 mmol/L (98-107); GLUCOSE 109 mg/dL (74-106); MAGNESIUM - SERUM 1.8 mg/dL (1.8-2.4); PHOSPHOROUS 2.5 mg/dL (2.5-4.9); SODIUM 138 mmol/L (136-145); UREA NITROGEN 14 mg/dL (7-18); eGFR NON AFRICAN AMERICAN 77 mL/min (90-120)
--- NOTE | 2020-01-16 09:10 | NUR ---
FINISHED METAL REPAIRER OFFERED PT SHOWER THIS AM AND PT REFUSED AND STATED HE WILL TAKE ONE AT HOME.
[2020-01-16 09:32] VITALS: BP 119/64
--- NOTE | 2020-01-16 11:13 | NUR ---
ADMISSION ASSESSMENT DONE. PATIENT INCONT. OF URINE. CLEANED UP, NEW LINENS PLACED ALONG WITH LOI MAT ALARM. TURNED ON ALARM. CALL LIGHT IN LAP. INSTRUCTED TO CALL FOR ASSISTANCE. STATES TO UNDERSTANDING.
[2020-01-16 13:40] VITALS: BP 129/75
--- NOTE | 2020-01-16 14:00 | NUR ---
PT DISCHARGED. RIGHT FA 20G IV DC'D WITH CATH INTACT. DISCHARGE INSTRUCTIONS GIVEN TO PT AND TEACHIGN DONE. PT SIGNED CHART COPY. PT'S SYED SUKHWINDER CALLED AT THIS TIME AND ASKED PT IF HE TOOK A SHOWER AND PT STATED "NO I AM GOING TO TAKE ONE AT HOME." SUKHWINDER THEN STATED TO HIMN OVER THE PHONE THAT HE IS HERE BUT HE WILL COME UP AND WAIT ON PT IN ROOM UNTIL HE GETS A SHOWER BECAUSE HE WON'T HAVE HELP AT HOME AND HE WON'T TAKE HIM HOME TILL HE GETS A SHOWER.
--- NOTE | 2020-01-16 14:09 | NUR ---
JEFRY MCCRACKEN ASSISTING PT WITH A SHOWER.
--- NOTE | 2020-01-16 14:18 | NUR ---
PATIENT RIDE IS HERE BUT PATIENT IS ADAMENT ABOUT TAKING A BATH NOW. HE WAS OFFERED ONE EARILER IN SHIFT BY BOTH MADDI BROWNE AND CHELSEA FERRERA AND REFUSED. NO WASHCLOTHS ON MED/SURG OR MED 2. TWO TOWELS AND BUCKET OF SOAPY WATER GIVEN TO PATIENT.
--- NOTE | 2020-01-18 14:49 | EC ---
PATIENT:GIA GUSMAN DATE OF SERVICE: 01/15/20 SEX: M MEDICAL RECORD: [id number] DATE OF : [birth year] LOCATION:D.M2 D.213 AGE OF PATIENT: 74 ADMISSION DATE: 01/15/20 REFERRING PHYSICIAN: INTERPRETING PHYSICIAN: AVRIL AMAYA MD ECHOCARDIOGRAM REPORT ECHO CHARGES 4 ECHO COMPLETE Date: 01/15/20 CLINICAL DIAGNOSIS: FREQUENT FALLS ECHOCARDIOGRAPHIC MEASUREMENTS (adult normal given) AC root (d.<3.7cm) 3.4 cm LV Septum d (<1.2 cm> 0.5 cm Valve Excursion 2.0 cm LV Septum (systole) 1.2 cm Left Atria (s.<4.0cm> 4.7 cm LVPW d(<1.2cm) 0.9 cm RV (d.<2.3cm) 3.9 cm LVPW (sytole) 1.0 cm LV diastole(<5.6CM) 5.7 cm MV E-F(>70mm/sec) cm LV systole 4.2 cm LVOT Diameter 1.9 cm MV exc.(>10mm) cm Est.ejection fraction (50-75%) % DOPPLER: LVIT cm/sec A 127 cm/sec E 91 cm/sec LA cm/sec RVSP 26.0 mmHg LVOT 101 cm/sec AOP1/2T m/s Asc. Ao 123 cm/sec RVOT 82 cm/sec RA cm/sec PA 124 cm/sec AV Gradient Peak 6.1 mmHg AV Mean 3.7 mmHg AV Area 2.3 cm MV Gradient Peak 5.9 mmHg MV Mean 2.9 mmHg MV Area cm COMMENTS: Cobbler Upper: [facility] Ingot Buggy Operator: 4 Dr. Amaya TAPE# PACS Pericardial Effusion N DATE OF SERVICE: PROCEDURE: Transthoracic echocardiogram. FINDINGS: 1. Left ventricle is normal size, shape, structure, and function. There is mild dilatation. 2. Left atrial appendage and left atrial size is enlarged, but with reasonably normal function. 3. Aortic valve is normal. ECHOCARDIOGRAM REPORT [id number] GIA GUSMAN 4. Mitral valve has mild mitral regurgitation. 5. Tricuspid valve has trace tricuspid regurgitation. The right ventricular systolic pressure is normal. 6. The right ventricle has mildly enlarged, but with normal function. 7. Right atrium is normal. 8. Pulmonic valve is normal. Bubbles were infused. There did not appear to be any right to left communication of the bubbles through the atrial septum with a negative bubble study. TRANSINT:[id number] Voice Confirmation ID: [id number] DOCUMENT ID: [id number] AVRIL AMAYA MD at 1449 CC: [id number] DICTATION DATE: 01/17/20 1055 BUNCHER HAND: 01/17/20 1207 DIS IN 01/16/20 [place] [id number] [place] [id number]
== END 2020-01-16 16:18 | disposition home or self-care (01) ==
LOC: D.ER 00:41 → OBSVTIME 01:31 → D.M2 01:31
PROVIDERS: Family Medicine; ADMIT Family Medicine; ATTEND Family Medicine
DX: M25.522 Pain in left elbow (principal); W19.XXXA Unspecified fall, initial encounter; I10 Essential (primary) hypertension; I25.10 Atherosclerotic heart disease of native coronary artery without angina pectoris; I69.354 Hemiplegia and hemiparesis following cerebral infarction affecting left non-dominant side; L97.229 Non-pressure chronic ulcer of left calf with unspecified severity